=== PATIENT | male | born 1985 | race Caucasian/White ===

== ENCOUNTER 2020-09-14 19:10 | Emergency (ER) | payer OTHER ==
[~2020-09-14] VITALS: Ht 170.2 cm; Wt 84.0 kg
[2020-09-14] MEDS ORDERED: HYDROcodone/APAP 7.5/325MG 1 TAB TABLET PO ONE (21:00)
--- NOTE | 2020-09-14 21:15 | RAD ---
Exam performed: 2 views tibia fibula. Indication:Right calf pain Date of Service:09/14/2020 Comparison:None available Findings: AP and lateral radiographs of the tibia/fibula and oblique fracture of the distal tibia. Fibula is in tact. Normal alignment of the knee and ankle joint appears preserved. There is diffuse soft tissue sw elling. Impression: Oblique fracture distal tibia. Electronically signed by: Natalie Mota MD (09/14/2020 9:13 PM) [facility]
[2020-09-14 22:04] VITALS: BP 129/85
[2020-09-14] MEDS ORDERED: OXYC1TAB19 PO (22:21)
--- NOTE | 2020-09-14 22:22 | ED.ADGEN ---
Past Medical History Past Medical History: No Pertinent History Past Surgical History: No Surgical History Smoking Status: Current Every Day Smoker Alcohol Use: Occasionally General Adult EDM: Chief Complaint: LOWEREXTREMITY INJURY HPI: HPI: Patient is a 35 year old male who presents to the emergency department with complaints of right lower leg pain after a fall while rollerblading this evening. Patient states that when he fell he heard a loud pop from his right leg and he has not been able to bear weight on his right leg since the injury. Patient states he feels like his bones are grinding together. He denies any loss of consciousness, head, neck, or back pain. He currently rates his pain 10 out of 10 on the pain scale, he denies any alleviating factors, pain is worse with palpation and movement. Review of Systems: Review of Systems: Complete ROS is negative unless otherwise noted in HPI. Current Medications: Current Medications Medications (Trade) Dose Ordered Sig/Dhara Start Time Stop Time Status Last Admin Dose Admin Acetaminophen/ Hydrocodone Bitart (Lortab 7.5/325) 1 tab 1X ONCE 09/14/20 21:00 09/14/20 21:01 DC 09/14/20 20:54 1 TAB Allergies: Allergies: Allergies Coded Allergies Type Severity Reaction Last Updated Verified No Known Drug Allergies 09/14/20 No Physical Exam: PE: See Above Constitutional: Well developed, well nourished, no acute distress, non-toxic appearance. [] HENT: Normocephalic, atraumatic, bilateral external ears normal, nose normal. [] Eyes: PERRLA, EOMI, conjunctiva normal, no discharge. [] Neck: Normal range of motion, no stridor. [] Cardiovascular:Heart rate regular rhythm Lungs & Thorax: Respirations even and unlabored, no retractions, no respiratory distress Skin: Warm, dry, no erythema, no rash. [] Extremities: RLE: Tenderness to palpation of the lateral lower right extremity with palpable crepitus, 2+ edema, sensation intact, 2+ pedal pulse, 2+ posterior tibial pulse, cap refill less than 2 seconds, no cyanosis, ROM limited due to injury Neurologic: Alert and oriented X 3, no focal deficits noted. [] Psychologic: Affect normal, judgement normal, mood normal. [] Current Patient Data: Vital Signs: Vital Signs Date Time Temp Pulse Resp B/P (MAP) Pulse Ox O2 Delivery O2 Flow Rate FiO2 09/14/20 22:04 99 129/85 (100) 97 Room Air 09/14/20 20:20 98.8 16 98.8 EKG: EKG: [] Heart Score: Risk Factors: Risk Factors: DM, Current or recent (<one month) smoker, HTN, HLP, family history of CAD, obesity. Risk Scores: Score 0 - 3: 2.5% MACE over next 6 weeks - Discharge Home Score 4 - 6: 20.3% MACE over next 6 weeks - Admit for Clinical Observation Score 7 - 10: 72.7% MACE over next 6 weeks - Early Invasive Strategies Radiology/Procedures: Radiology/Procedures: PROCEDURE: TIBIA FIBULA RIGHT Exam performed: 2 views tibia fibula. Indication:Right calf pain Date of Service:09/14/2020 Comparison:None available Findings: AP and lateral radiographs of the tibia/fibula and oblique fracture of the distal tibia. Fibula is intact. Normal alignment of the knee and ankle joint appears preserved. There is diffuse soft tissue swelling. Impression: Oblique fracture distal tibia. [] Course & Med Decision Making: Course & Med Decision Making Pertinent Labs and Imaging studies reviewed. (See chart for details) 2013-spoke with Dr. Ngo about the patient. Will place pt in long leg posterior splint with stirrup and have pt follow up in his office on Wednesday. [] Jamie Disclaimer: Jamie Disclaimer: This electronic medical record was generated, in whole or in part, using a voice recognition dictation system. Departure Departure Impression: Primary Impression: Tibia/fibula fracture, shaft Disposition: HOME SELF CARE/HOMELESS Condition: STABLE Referrals: NO PCP (PCP) BLU NGO MD Patient Instructions: Tibial Fracture, Adult Additional Instructions: Fill prescription(s) and use as directed. Recommend application of ice, elevation, and rest of affected extremity. Wear the splint that was placed and no weightbearing, strict crutch use until follow up appointment with Dr. Ngo on Wednesday, call his office first thing on Wednesday to schedule an appointment. Return to the ER if your symptoms worsen or you develop a fever.. Scripts Oxycodone/Apap 7.5-325 (PERCOCET 7.5-325 MG TABLET ) 1 Each Tablet 1 TAB PO QIDPRN PRN for PAIN MDD 4 Tablet(s) for 5 Days, #20 TAB 0 Refills Prov: DECLAN DEAN RESPIRATORY DIRECTOR 09/14/20 Splinting Splinting : Location: [facility] Hand-Made Type: fiberglass Splint: Posterior long leg with stirrups Pre-Proc Neuro Vasc Exam: normal Post-Proc Neuro Vasc Exam: normal, unchanged from pre-exam Problem Qualifiers Primary Impression: Tibia/fibula fracture, shaft Encounter type: initial encounter Fracture type: closed Laterality: right Qualified Codes: S82.201A - Unspecified fracture of shaft of right tibia, initial encounter for closed fracture; S82.401A - Unspecified fracture of shaft of right fibula, initial encounter for closed fracture DECLAN DEAN RESPIRATORY DIRECTOR Sep 14, 2020 22:22
== END 2020-09-14 22:27 | disposition home or self-care (01) ==
LOC: ER 19:10
DX: S82.201A Unspecified fracture of shaft of right tibia, initial encounter for closed fracture (principal); S82.401A Unspecified fracture of shaft of right fibula, initial encounter for closed fracture; S82.301A Unspecified fracture of lower end of right tibia, initial encounter for closed fracture; F17.200 Nicotine dependence, unspecified, uncomplicated; W18.39XA Other fall on same level, initial encounter; Y93.89 Activity, other specified; Y92.89 Other specified places as the place of occurrence of the external cause; Y99.8 Other external cause status
CPT/HCPCS: 29505; 73590; 99283

== ENCOUNTER → 2020-09-16 | Outpatient (CLI) | payer OTHER ==
[2020-09-14 22:04] VITALS: BP 129/85
[~2020-09-16] MED LIST: OXYC1TAB19 PO
== END ==
LOC: LAB 16:17
PROVIDERS: ATTEND Orthopaedic Surgery
DX: Z01.812 Encounter for preprocedural laboratory examination (principal); Z20.828 Contact with and (suspected) exposure to other viral communicable diseases
CPT/HCPCS: U0003

== ENCOUNTER 2020-09-19 06:06 | Day surgery (SDC) | payer OTHER ==
[~2020-09-19] VITALS: Ht 170.2 cm; Wt 83.9 kg
[~2020-09-19 06:06] MED LIST changes: +IV RINGERS,LACTATED 1000ML 1,000 ML IV SCH; +fentaNYL PF VIAL 100 MCG/2 ML VIAL IVP PRN
[2020-09-19] MEDS ORDERED: DEXAMETHASONE SOD PHOS 4 MG/ML VIAL ONE (06:58)
[2020-09-19] MEDS ORDERED: ONDANSETRON PF 4 MG/2 ML VIAL. ONE (06:58)
[2020-09-19] MEDS ORDERED: PHENYLEPHRINE 10 MG/ML VIAL. ONE (06:58)
[2020-09-19] MEDS ORDERED: LIDOCAINE 2% PF 5 ML VIAL. ONE (06:58)
[2020-09-19] MEDS ORDERED: SEVOFLURANE 61 TO 120 MINUTES. IH ONE (06:58)
[2020-09-19] MEDS ORDERED: PROPOFOL 10 MG/ML (20ML) VIAL. IV ONE (06:58)
[2020-09-19] MEDS ORDERED: fentaNYL PF VIAL 100 MCG/2 ML VIAL ONE ×3 (07:03→09:46)
[2020-09-19] MEDS ORDERED: MIDAZOLAM HCL/PF 2 MG/2 ML VIAL. ONE (07:03)
[2020-09-19 07:20] LABS: CALCIUM 8.9 mg/dL (8.5-10.1); CREATININE 0.9 mg/dL (0.7-1.3); GFR 96.6; POTASSIUM 3.9 mmol/L (3.5-5.1)
[2020-09-19 07:55] LABS: BASO % 0 % (0-3); EOS # 0.2 x10^3/uL (0.0-0.7); EOS % 2 % (0-3); HEMATOCRIT 42.2 % (39.0-53.0); HEMOGLOBIN 14.1 g/dL (13.0-17.5); LYMPH # 2.2 x10^3/uL (1.0-4.8); LYMPH % 23 % (24-48); MEAN CORPUSCULAR HEMOGLOBIN 29 pg (25-35); MEAN CORPUSCULAR HGB CONC 33 g/dL (31-37); MEAN CORPUSCULAR VOLUME 86 fL (79-100); MONO # 0.5 x10^3/uL (0.0-1.1); MONO % 6 % (0-9); NEUT # 6.6 x10^3/uL (1.8-7.7); NEUT % 69 % (31-73); PLATELET COUNT 284 x10^3/uL (140-400); RED BLOOD COUNT 4.89 x10^6/uL (4.30-5.70); RED CELL DISTRIBUTION WIDTH 13.5 % (11.5-14.5); WHITE BLOOD COUNT 9.5 x10^3/uL (4.0-11.0)
[2020-09-19] MEDS ORDERED: BUPIVACAINE-EPI 0.5% 30 ML VIAL KIT. ONE (08:41)
[2020-09-19] MEDS ORDERED: MORPHINE SULFATE 2 MG/ML VIAL. ONE (09:13)
[2020-09-19] MEDS: MORPHINE SULFATE 2 MG/ML VIAL. IVP PRN ×2 (09:15→09:24)
[2020-09-19] MEDS ORDERED: PROCHLORPERAZINE 10 MG/2 ML VIAL. ONE (09:19)
[2020-09-19] MEDS: PROCHLORPERAZINE 10 MG/2 ML VIAL. IVP PRN ×2 (09:24→09:29)
[2020-09-19] MEDS ORDERED: HYDROmorphone 2 MG/ML VIAL ONE (09:26)
[2020-09-19] MEDS: HYDROmorphone 2 MG/ML VIAL IVP PRN ×4 (09:26→09:49)
[2020-09-19] MEDS ORDERED: oxyCODONE/APAP 7.5/325 1 TAB TABLET PO ONE ×2 (09:45)
[2020-09-19] MEDS: fentaNYL PF VIAL 100 MCG/2 ML VIAL IVP PRN ×2 (09:52→10:00)
[2020-09-19 12:00] VITALS: BP 153/74
--- NOTE | 2020-09-19 12:04 | DISCH ---
DISCHARGE INSTRUCTIONS Condition on Discharge Condition on Discharge: Stable Activity After Discharge Activity Instructions for Disc: Other, see below (Ambulation with crutches, keep leg elevated when not up and around) Weight Bearing Status after Di: Non weight bearing Diet after Discharge Diet after Discharge: Regular Wound Incision Care Wound/Incision Care: Change dressing (May remove dressing in 4 days then placed Band-Aids and if no drainage may shower, no soaking) Contacting the DRJoaquina after DC Call your doctor for: Concerns you may have Follow-Up Follow up with: Dr. Ngo 1 week BLU NGO MD Sep 19, 2020 12:04
--- NOTE | 2020-09-19 17:01 | PDOC4 ---
Operative Note Operative Note Date of surgery: 09/11/2020 Preoperative diagnosis: Spiral tibial shaft fracture right Postoperative diagnosis: Same Operative procedure: Operative reduction intramedullary nail fixation of right tibial shaft fracture Surgeon: Huber Passport Application Examiner: Rafael braswell assist Anesthesia: General Estimated blood loss: 100 cc Complications: None Operative indications: Please see my orthopedic clinic note for detailed operative indications and note that we had discussed nonoperative and operative treatment options for his tibial shaft fracture. He was having significant pain with any movement and was reluctant to have a long-leg cast for the expected timeframe depending on x-ray healing. We did talk about possible operative fixation which would allow him motion of his knee and ankle and does have some risk of infection nerve or blood vessel damage medical or other anesthetic complications among others and I did indicate that the fixation is just stabilizing the fracture until it does heal that we would not allow him to bear weight or really do excessive activity in the interim he understands all this and wishes to proceed with surgical evaluation and treatment. Operative text: Patient was identified procedure verified patient placed in the supine position on the operating table. After adequate amounts of general anesthesia were administered the right lower extremity was prepped and draped in standard sterile fashion with a thigh tourniquet. After timeout was performed patient procedure identified and verified right lower extremity was exsanguinated by Esmarch bandage tourniquet inflated to 250 mmHg. An incision was made along the medial aspect of the patella and patellar tendon to allow slight lateral translation of the patella placing a guidewire under fluoroscopic guidance. Entry reamer was then placed along with a guidewire with the fracture held in reduced position successive size reaming was carried out to 12-1/2 mm and a Melissa tibial nail 11 mm x 34 mm length was placed across the fracture site and reduction was checked under multiple fluoroscopic views. First an anterior posterior screw was placed distally to maintain the reduction. Proximal locking screws were placed from medial and lateral. An additional medial to lateral distal locking screw was placed and excellent reduction and rotational control was obtained. Hardware placement and fracture reduction were again checked under multiple fluoroscopic views. Irrigation carried out normal saline solution the medial parapatellar approach was closed with #1 Vicryl. Subcutaneous closure with buried Vicryl suture subcuticular Monocryl and soft sterile dressings were applied. Toes were noted to be warm pink following deflation of tourniquet patient was returned to recovery room in stable condition having tolerated the procedure well. Rafael gan was present for the procedure and assisted in patient positioning prepping draping retraction closure and dressings BLU GOODMAN MD Sep 19, 2020 17:01
== END 2020-09-19 12:30 | disposition home or self-care (01) ==
LOC: SURG 06:06
PROVIDERS: ATTEND Orthopaedic Surgery
DX: S82.241A Displaced spiral fracture of shaft of right tibia, initial encounter for closed fracture (principal); F17.210 Nicotine dependence, cigarettes, uncomplicated; Z79.899 Other long term (current) drug therapy; Z98.890 Other specified postprocedural states; Z72.89 Other problems related to lifestyle; X58.XXXA Exposure to other specified factors, initial encounter; Y93.89 Activity, other specified; Y92.89 Other specified places as the place of occurrence of the external cause; Y99.8 Other external cause status
CPT/HCPCS: 27758; 36415; 80048; 85025; C1713; J0690; J0780; J1100; J1170; J2250; J2270; J2370; J2405; J2704; J3010; J7120; 76000